=== PATIENT | male | born 1960 | race Caucasian/White ===

== ENCOUNTER 2018-04-10 20:10 | Emergency (ER) | payer SELFPAY | END 2018-04-10 20:22 | LOC: SED 20:10 | DX: Z02.89 Encounter for other administrative examinations (principal) | CPT/HCPCS: 99283 ==

== ENCOUNTER 2018-04-11 16:01 | Emergency (ER) | payer SELFPAY ==
[~2018-04-11] VITALS: Ht 154.9 cm; Wt 61.2 kg
[2018-04-11 16:25] VITALS: BP_SYST 122
[2018-04-11 16:42] VITALS: BP_SYST 122
[2018-04-11] MEDS ORDERED: LIDOCAINE 1%, 20 ML MDV 20 ML ONE (20:28)
== END 2018-04-11 16:42 ==
LOC: SED 16:01
DX: S60.812A Abrasion of left wrist, initial encounter (principal); S60.511A Abrasion of right hand, initial encounter; M54.5 Low back pain; R03.0 Elevated blood-pressure reading, without diagnosis of hypertension; X58.XXXA Exposure to other specified factors, initial encounter; Y93.89 Activity, other specified; Y92.89 Other specified places as the place of occurrence of the external cause; Y99.8 Other external cause status
CPT/HCPCS: 99283; J2001